=== PATIENT | male | born 1955 | race Caucasian/White ===

== ENCOUNTER 2016-10-27 10:14 | Observation (INO) ==
[2016-10-27] MEDS ORDERED: NS 1,000 ML IV ONE (10:52)
[2016-10-27 11:04] LABS: MANUAL DIFF NEEDED? NO
[2016-10-27 11:08] LABS: BASO% 0.5 % (0.0-0.8); EOS# 0.37 X1000 (0.0-0.7); HEMATOCRIT 41.9 % (42.0-52.0); HEMOGLOBIN 14.7 g/dL (14.0-18.0); IMM GRAN# 0.02 X1000 (0.0-0.04); IMM GRAN% 0.3 % (0.0-0.5); LYMPH# 1.57 X1000 (1.2-3.4); LYMPH% 21.1 % (20.5-51.1); MCH 32.8 PG (27-31); MCHC 35.1 g/dL (33-37); MCV 93.5 FL (81-99); MONO# 0.77 X1000 (0.11-0.59); MONO% 10.4 % (1.7-9.3); MPV 11.5 FL (7.4-10.4); NEUT% 62.7 % (42.2-75.2); PLT 157 X1000 (130-400); RBC 4.48 XMIL (4.7-6.1)
[2016-10-27 11:24] LABS: INR 0.9 (0.86-1.15); PROTIME 12.5 Seconds (12.1-15.5)
[2016-10-27 11:25] LABS: AGAP 14; ALBUMIN 4.5 g/dL (3.5-5.0); ALKALINE PHOSPHATASE 78 U/L (32-122); BUN 12 mg/dL (8-22); CALCIUM 9.1 mg/dL (8.8-10.2); CHLORIDE 106 mmol/L (98-107); CK PROFILE 152 U/L (24-204); COSMO 279; GOT 18 U/L (10-34); GPT 18 U/L (10-44); POTASSIUM 3.8 mmol/L (3.5-5.1); PTT PL 30.1 Seconds (22.6-43.9); SODIUM 140 mmol/L (136-145); TCO2 21 mmol/L (25-35); TOTAL PROTEIN 7.3 g/dL (6.3-8.3)
--- NOTE | 2016-10-27 11:33 | Diag Imaging Result Document ---
PROCEDURE NAME: CHEST-1 VIEW - 10/27/2016 ONE VIEW OF THE CHEST: FINDINGS: There are hypertrophic changes in the 1st rib ends bilaterally. This is notable on the left producing a nodule-like shadow over the apex. The heart size and pulmonary vascularity are within normal limits. There are scattered granulomata. There are no previous studies. IMPRESSION: No evidence of acute disease.
--- NOTE | 2016-10-27 11:34 | Diag Imaging Result Document ---
PROCEDURE NAME: HEAD W/O CONTRAST - 10/27/2016 CT OF THE HEAD WITHOUT CONTRAST: FINDINGS: There are patchy lucencies in the white matter of both hemispheres particularly in the frontal and parietal lobes. There is no evidence of mass effect, bleed, or abnormal extra-axial fluid collection. No previous studies are available for comparison. There is some mucosal thickening in the ethmoid air cells. The calvarium is intact. IMPRESSION: Chronic microvascular changes. No definite evidence of acute disease.
--- NOTE | 2016-10-27 12:00 | PROVIDER DOCUMENTATION ---
This chart was entered by Mary Ellen Robb Scribe, acting as scribe for Elvis Farooq MD. HPI-Neurological Disorder - General Chief Complaint: Facial Pain Stated Complaint: POSS STROKE Time Seen by Provider: 10/27/16 10:32 Source: patient Allergies/Adverse Reactions: Patient Allergies Allergy/AdvReac Type Severity Reaction Status Date / Time No Known Allergies Allergy Verified 10/27/16 10:20 Home Medications: Home Medication List Medication Instructions Recorded Confirmed Last Taken Type NK [No Home Medications] 10/27/16 10/27/16 Unknown History - History of Present Illness-Neuro Nature of Presenting Problem: Pt is 61 y/o M presents to the ED with R side facial numbness. Pt states symptoms started yesterday. Pt denies SOB. Pt denies recent trauma. Headache Location: denies: frontal, temporal, occipital, parietal, global Severity: reports: mild Onset/Duration: reports: 24 hours ago Timing: reports: still present, intermittent Context: reports: facial droop (R), other (R side facial numbness) Character of Altered Mental Status: reports: N/A Any recent trauma/injury?: reports: none Character of Deficits: denies: altered sensation, vision problem/glaucoma, impaired speech, impaired swallowing, decreased ability to stand, decreased ability to walk, falling New weakness or altered sensation location:: reports: right facial Cognitive Baseline: alert, oriented x3 Gait Baseline: walks without assistance Associated Symptoms: reports: denies symptoms Similar Symptoms Previously?: Yes Recently seen or treated by another doctor?: No Review of Systems - Adult - REVIEW OF SYSTEMS - ADULT Constitutional: denies: chills, fever Eyes: denies: blurred vision, double vision Ears, Nose, Mouth & Throat: denies: ear pain, nose pain, throat pain Cardiovascular: denies: chest pain, heart murmur, irregular heart rate Respiratory: denies: cough, shortness of breath, wheezing Gastrointestinal: denies: abdominal pain, diarrhea, nausea, vomiting Genitourinary: denies: dysuria, hematuria Musculoskeletal: denies: bone pain, joint pain, neck pain Integumentary: denies: hives, itching, rash Neurological: reports: other (R side facial droop and numbness). denies: ataxia , dizziness/vertigo, headache/migraines, loss of balance, numbness, paresthesia , seizure, slurred speech, syncope, tremors Psychiatric: reports: no symptoms reported Endocrine: reports: no symptoms reported Hematologic/Lymphatic: reports: no symptoms reported Allergic/Immunologic: reports: no symptoms reported All Other Systems: Reviewed and Negative Past History - Adult - PAST MEDICAL HISTORY-ADULT Review of Records: reports: Nursing Assessment Review, Medications Reviewed, Social history reviewed & non-contributory. Major Childhood Illnesses: reports: denies history Cardiovascular: reports: HTN Respiratory: reports: denies history Gastrointestinal: reports: denies history Obstetrical/Gynecological: reports: denies history Genitourinary: reports: denies history Musculoskeletal: reports: denies history Neurological: reports: denies history Endocrine/Immune: reports: denies history Other Conditions: reports: denies history - IMMUNIZATION STATUS Childhood Immunizations: See Nurse Assessment Flu Vaccine: See Nurse Assessment - FAMILY HISTORY Family History: reviewed, not pertinent - SOCIAL HISTORY Smoking: cigarettes, less than 1 pack/day Provider spent 3-5 mins advising pt. on dangers of tobacco.: Discussed manners to quit use, and f/u contacts for add'l counseling. Alcohol Use Frequency: occasionally Number of drinks per typical drinking period:: 2 drinks Living Situation: family Physical Exam- Neurological - Physical Exam-Neuro Initial Vital Signs Reviewed: Yes General Appearance: appears well, alert, no apparent distress Eye Exam: bilateral eye: normal inspection, PERRL, EOMI HENMT: normocephalic/atraumatic, moist mucous membranes, normal ENT inspection, TMs normal, pharynx normal Head Injury: no evidence of injury Face: 1 - R side facial droop and numbness Neck: non-tender, full range of motion, supple, normal inspection Respiratory: chest non-tender, lungs clear, normal breath sounds, no pleuratic chest pain, no respiratory distress, no accessory muscle use Cardiovascular: normal peripheral pulses, regular rate, rhythm, no edema, no gallop, no JVD, no murmur Abdominal Exam: normal bowel sounds, non tender, soft, no organomegaly, no pulsatile mass Lymphatic: no adenopathy Extremity: normal range of motion, non-tender, normal gait, normal inspection, no pedal edema, no calf tenderness, normal capillary refill operator supply Exam: normal hearing, normal speech, PERRL, facial droop (R), facial weakness (R) Coordination/Gait: normal finger to nose, normal gait Motor/Sensory: no motor deficit, no sensory deficit, no pronator drift Neurologic: grossly normal Integumentary: normal color, normal turgor, warm/dry Psych/Mental Status: normal mood/affect Progress - PLAN OF CARE/RESULTS Progress/Plan/Lab Results: Vital Signs - 8 hr 10/27/16 10:17 Temperature 98 F Pulse Rate 86 Respiratory Rate 18 Blood Pressure 188/109 O2 Sat by Pulse Oximetry 100 Laboratory Results - last 24 hr 10/27/16 10/27/16 10/27/16 10:50 10:50 10:50 WBC RBC Hgb Hct MCV MCH MCHC RDW Std Deviation Plt Count MPV Immature Gran % (Auto) Neut % (Auto) Lymph % (Auto) Travis % (Auto) Eos % (Auto) Baso % (Auto) Immature Gran # (Auto) Neut # (Auto) Lymph # (Auto) Travis # (Auto) Eos # (Auto) Baso # (Auto) PT INR APTT (Factor Assay) Sodium 140 Potassium 3.8 Chloride 106 Carbon Dioxide 21 L Anion Gap 14 BUN 12 Creatinine 0.8 Estimated GFR/1.73 m2 > 60 BUN/Creatinine Ratio 15 Glucose 98 Calculated Osmolality 279 Calcium 9.1 Total Bilirubin 0.50 AST 18 ALT 18 Alkaline Phosphatase 78 Creatine Kinase 152 Troponin T < 0.010 Total Protein 7.3 Albumin 4.5 Globulin 3.0 Albumin/Globulin Ratio 2.0 Plasma Lactate Urine Source Urine Color Urine Clarity Urine pH Ur Specific [place] Urine Protein Urine Ketones Urine Blood Urine Nitrite Urine Bilirubin Urine Urobilinogen Urine Microscopic RBC Urine WBC Urine Microscopic WBC Urine Glucose Urine Opiates Screen Ur Oxycodone Screen Urine Methadone Screen Ur Barbituates Screen Ur Tricyclics Screen Ur Phencyclidine Scrn Ur Amphetamines Screen U Methamphetamines Scrn Urine MDMA Screen U Benzodiazepines Scrn Urine Cocaine Screen U Cannabinoids Screen Plasma/Serum Ethyl Alc 10/27/16 10/27/16 10/27/16 10:50 10:50 11:25 WBC 7.43 RBC 4.48 L Hgb 14.7 Hct 41.9 L MCV 93.5 MCH 32.8 H MCHC 35.1 RDW Std Deviation 12.4 Plt Count 157 MPV 11.5 H Immature Gran % (Auto) 0.3 Neut % (Auto) 62.7 Lymph % (Auto) 21.1 Travis % (Auto) 10.4 H Eos % (Auto) 5.0 Baso % (Auto) 0.5 Immature Gran # (Auto) 0.02 Neut # (Auto) 4.66 Lymph # (Auto) 1.57 Travis # (Auto) 0.77 H Eos # (Auto) 0.37 Baso # (Auto) 0.04 PT 12.5 INR 0.90 APTT (Factor Assay) 30.1 Sodium Potassium Chloride Carbon Dioxide Anion Gap BUN Creatinine Estimated GFR/1.73 m2 BUN/Creatinine Ratio Glucose Calculated Osmolality Calcium Total Bilirubin AST ALT Alkaline Phosphatase Creatine Kinase Troponin T Total Protein Albumin Globulin Albumin/Globulin Ratio Plasma Lactate 0.6 Urine Source Urine Color Urine Clarity Urine pH Ur Specific [place] Urine Protein Urine Ketones Urine Blood Urine Nitrite Urine Bilirubin Urine Urobilinogen Urine Microscopic RBC Urine WBC Urine Microscopic WBC Urine Glucose Urine Opiates Screen Ur Oxycodone Screen Urine Methadone Screen Ur Barbituates Screen Ur Tricyclics Screen Ur Phencyclidine Scrn Ur Amphetamines Screen U Methamphetamines Scrn Urine MDMA Screen U Benzodiazepines Scrn Urine Cocaine Screen U Cannabinoids Screen Plasma/Serum Ethyl Alc 10/27/16 10/27/16 13:35 13:35 WBC RBC Hgb Hct MCV MCH MCHC RDW Std Deviation Plt Count MPV Immature Gran % (Auto) Neut % (Auto) Lymph % (Auto) Travis % (Auto) Eos % (Auto) Baso % (Auto) Immature Gran # (Auto) Neut # (Auto) Lymph # (Auto) Travis # (Auto) Eos # (Auto) Baso # (Auto) PT INR APTT (Factor Assay) Sodium Potassium Chloride Carbon Dioxide Anion Gap BUN Creatinine Estimated GFR/1.73 m2 BUN/Creatinine Ratio Glucose Calculated Osmolality Calcium Total Bilirubin AST ALT Alkaline Phosphatase Creatine Kinase Troponin T Total Protein Albumin Globulin Albumin/Globulin Ratio Plasma Lactate Urine Source CLEAN CATCH Urine Color YELLOW Urine Clarity CLEAR Urine pH 7.0 Ur Specific [place] 1.005 Urine Protein NEGATIVE Urine Ketones NEGATIVE Urine Blood 1+ A Urine Nitrite NEGATIVE Urine Bilirubin NEGATIVE Urine Urobilinogen NORMAL Urine Microscopic RBC <10 Urine WBC TRACE A Urine Microscopic WBC <10 Urine Glucose NEGATIVE Urine Opiates Screen NONE DETECTED Ur Oxycodone Screen NONE DETECTED Urine Methadone Screen NONE DETECTED Ur Barbituates Screen NONE DETECTED Ur Tricyclics Screen NONE DETECTED Ur Phencyclidine Scrn NONE DETECTED Ur Amphetamines Screen NONE DETECTED U Methamphetamines Scrn NONE DETECTED Urine MDMA Screen NONE DETECTED U Benzodiazepines Scrn NONE DETECTED Urine Cocaine Screen NONE DETECTED U Cannabinoids Screen NONE DETECTED Plasma/Serum Ethyl Alc Orders Category Date Time Status Cardiac Monitoring DIRECTED Care 10/27/16 10:51 Active Finger Stick Blood Sugar (ED) DIRECTED Care 10/27/16 10:51 Active Saline Loc NOW Care 10/27/16 10:51 Active CHEST-1 VIEW [RAD] Stat Exams 10/27/16 10:51 Completed HEAD W/O CONTRAST [CT] Stat Exams 10/27/16 10:51 Completed ALCOHOL BLOOD Stat Lab 10/27/16 10:50 Completed CBC WITH ELECTRONIC DIFF [HEME] Stat Lab 10/27/16 10:50 Completed CK PROFILE [SP CHEM] Stat Lab 10/27/16 10:50 Completed COMPREHENSIVE METABOLIC PANEL [CHEM] Stat Lab 10/27/16 10:50 Completed LACTATE, PLASMA [CHEM] Stat Lab 10/27/16 11:25 Completed PROTIME WITH INR PL [COAG] Stat Lab 10/27/16 10:[address] [COAG] Stat Lab 10/27/16 10:50 Completed TROPONIN T Stat Lab 10/27/16 10:[address] W/POSS RFLX CULT [URINALYSIS] Stat Lab 10/27/16 13:35 Completed URINE DRUG SCREEN PL Stat Lab 10/27/16 13:35 Completed 0.9% Sodium Chloride Inj [Ns] 1,000 ml Med 10/27/16 10:52 Active IV 150 mls/hr Metoprolol [Lopressor] Med 10/27/16 12:40 Discontinued 5 mg IV NOW ONE Pulse Oximetry Stat Oth 10/27/16 10:51 Active EKG [EKG] Stat Ther 10/27/16 10:51 Active Result Diagrams: 10/27/16 10:50 10/27/16 10:50 - EKG 1 Time of EKG reading by physician:: 11:49 EKG Read and Signed by:: Elvis Farooq EKG Interpretation (*Must complete 3 of following elements*): Abnormal Rate: 64 Rhythm: normal sinus rhythm Comments: incomplete RBBB; nonspecific T wave abnormality - XRAY 1 XRAY: Bilateral XRAY Study: Chest Impression: Normal XRAY Interpretation: NAD - CT/MRI 1 CT Study: Head Impression: Abnormal CT Results: chronic white matter changes, no bleed or mass - CONSULTS/PCP/HOSPITALIST Notification #1 *Consult/PCP/Hospitalist*: Dr. Bhatt Time Discussed: 14:34 (Dr. Bhatt accepted admit) Reason/Comments: Dr. Farooq consulted with Dr. Bhatt about admit of Pt Consult Disposition: Admit Departure - Departure Time of Disposition Decision: 14:23 DIAGNOSIS: Swain's palsy, Elevated blood pressure reading CVA (cerebral vascular accident) Qualifiers: CVA mechanism: unspecified Qualified Code(s): I63.9 - Cerebral infarction, unspecified Disposition: ADMITTED INPATIENT 09 Certified Medical Emergency: Emergent Condition: Stable Additional Freetext Instructions: ED Follow Up Instructions: You have been treated by a care provider in the Emergency Department. These instructions are being provided to you so you can have an understanding of how to care for yourself upon discharge. Upon discharge from the Emergency Department, you are responsible for making arrangements for follow-up care by a physician of your choice. Take all prescribed medications as directed. Return to the Emergency Department immediately for any new or worsening symptoms. You may call the Physician Referral phone number at [phone] to obtain a list of Physicians who are taking new patients. Referrals and Follow-Ups: None,PCP [Primary Care Provider] - This chart was documented by the indicated elsyibe, (Mary Ellen Robb Scribe) and accurately reflects the services I performed and decisions made by me, Elvis Farooq MD, as attested by the provider's signature.
[2016-10-27] MEDS ORDERED: LOPRESSOR IV ONE (12:40)
[2016-10-27 13:42] LABS: URINE CULTURE PL NEEDED? NO
[2016-10-27 13:50] LABS: UR AMPHETAMINES QUAL NONE DETECTED (NONE DETECT); UR BARBITUATES QUAL NONE DETECTED (NONE DETECT); UR BENZODIAZEPIN QUAL NONE DETECTED (NONE DETECT); UR CANNABINOIDS QUAL NONE DETECTED (NONE DETECT); UR COCAINE QUAL NONE DETECTED (NONE DETECT); UR MDMA QUAL NONE DETECTED (NONE DETECT); UR METHADONE QUAL NONE DETECTED (NONE DETECT); UR METHAMPHETAMINE QUAL NONE DETECTED (NONE DETECT); UR OPIATES QUAL NONE DETECTED (NONE DETECT); UR OXYCODONE QUAL NONE DETECTED (NONE DETECT); UR PCP QUAL NONE DETECTED (NONE DETECT); UR TCA QUAL NONE DETECTED (NONE DETECT)
[2016-10-27 14:07] LABS: BILIRUBIN URINE NEGATIVE (NEGATIVE); BLOOD URINE 1+ (NEGATIVE); CLARITY CLEAR (CLEAR); COLOR YELLOW; GLUCOSE URINE NEGATIVE (NEGATIVE); LEUKOCYTES URINE TRACE (NEGATIVE); NITRITE URINE NEGATIVE (NEGATIVE); PROTEIN URINE NEGATIVE (NEGATIVE); SP GRAVITY URINE 1.005; UROBILINOGEN URINE NORMAL
[2016-10-27 14:15] LABS: URINE RBC <10 /HPF (<10); URINE SOURCE CLEAN CATCH; URINE WBC <10 /HPF (<10)
[2016-10-27] MEDS ORDERED: LACRI-LUBE OPH OINT RIGHT EYE SCH (17:15)
[2016-10-27] MEDS ORDERED: APRESOLINE IV PRN (17:31)
[2016-10-27] MEDS ORDERED: PRINIVIL PO ONE (17:50)
--- NOTE | 2016-10-27 18:16 | HISTORY AND PHYSICAL ---
CHIEF COMPLAINT: Right-sided facial numbness and drooping. HISTORY OF PRESENT ILLNESS: This is a 61-year-old male with a history of tobacco use and hypertension. He came in complaining of a right-sided facial droop with headache and numbness. He states that he was at work during the night Tuesday night. About 2 a.m. he noticed that just the corner of his right side of his mouth felt funny, was going numb. He said about 4 o'clock in the morning the numbness had progress to about the side of his face although there was no drooping and no difficulty moving. He states at that time, his eye was closing well. He works night. He went to bed. Woke up about 3 or 4 p.m. on Tuesday and noticed that the right side of his face was drooping, his eyelid is drooping and he is unable to close his eye completely. He has had a headache off and on. He has been very light sensitive with increased tearing to his right eye. He does have some pain into his right ear although this comes and goes. He has had some blurred vision throughout the last 24 hours. From himself and his family members he has had no change in speech, no difficulty swallowing. He has been able to eat without any difficulty in fact, he is eating a hamburger and [place] fries during the interview and he has no difficulty chewing or swallowing. He does have a history of hypertension. He was on antihypertensives until about 4 or 5 years ago when moved from [place] to [place]. He has just not taken the time to find a medical doctor to get medications. He is unaware of what his normal blood pressure is over these last 5 years. On arrival to the emergency room he was noted to have a blood pressure of 188/109 with a heart rate of 86, respirations 18, temperature 98 degrees. Repeat pressure was 200/133. He was given 1 dose of Lopressor IV and blood pressure did go from 180 down to about 130 systolic but within a few minutes it did creep back up. CT of the head revealed no acute processes. PAST MEDICAL HISTORY: Hypertension, tobacco use. PAST SURGICAL HISTORY: Vasectomy. SOCIAL HISTORY: He does smoke. He denies alcohol or illicit drug use. ALLERGIES: No known drug allergies. HOME MEDICATIONS: None. REVIEW OF SYSTEMS: A 14 point review of systems is discussed with patient. Pertinent positives stated in HPI. He denied dizziness, orthopnea, PND, cough, chest pain, palpitations, syncope, any nausea, vomiting, diarrhea, constipation, black or bloody vomitus, black or bloody stools. PHYSICAL EXAMINATION: GENERAL: This is a 61-year-old male, sitting on the side of the bed, in no distress. Blood pressure is 190/114 with a heart rate of 67, respirations are 18, temperature is 98.3 degrees with room air saturations 100%. HEENT: Head is normocephalic, atraumatic. Pupils are equal, round, and react. Sclerae are anicteric. Mucous membranes are moist. His right eye does not close. NECK: Supple. Trachea midline. CARDIOVASCULAR: Regular rate and rhythm. S1, S2 appreciated. PULMONARY: Breath sounds are clear with no increased work of breathing noted. GASTROINTESTINAL: Abdomen is soft, nontender, nondistended. Bowel sounds in all 4 quadrants. BACK: No CVAT. No spine tenderness. MUSCULOSKELETAL: Good range of motion of joints. NEUROLOGIC: He is alert and oriented x3. Speech is clear. There is no tongue or uvula deviation. Shoulder shrug is equal. [employer] Member are equal. No plantar drift. He has [id number] 5/5 bilateral. Muscle strength is 5/5 x4. He has normal gait. DIAGNOSTICS: WBC is 7.43 with hemoglobin 14.7, hematocrit 41.9 and platelets 157,000. INR is 0.90. Sodium is 140, potassium 3.8, BUN 12, creatinine 0.8, with a glucose of 98. Troponin is negative. Urine drug screen is negative with a blood alcohol of 0. CT of the head revealed no acute processes with chronic microvascular changes. Chest x-ray revealed no evidence of acute disease. ASSESSMENT AND PLAN: 1. Swain's palsy. 2. Hypertension. 3. Tobacco abuse. 4. Noncompliance. He will be admitted to the hospital. He will be placed on telemetry with neuro checks. We will give IV hydration. We will start steroids daily as well as Valtrex. We will protect his right eye using Artificial Tears at least every 2 hours and p.r.n. with Lacri-Lube at night, taping his eyes closed and patching. He was given Lopressor in the emergency room with no real change in blood pressure. We will start hydralazine p.r.n. and once we get the pressure down we can transition to p.o. medications. Further treatments pending hospital course. Dictated by SAMIR Caballero for Vamsi Bhatt MD cc: SAMIR Caballero MD
[2016-10-27] MEDS: VALTREX PO SCH (19:06)
[2016-10-27] MEDS: PREDNISONE PO SCH (19:11)
[2016-10-27] MEDS: TEARISOL OPH SOLUTION RIGHT EYE SCH ×3 (19:18→21:48)
[2016-10-28] MEDS: TEARISOL OPH SOLUTION RIGHT EYE SCH ×5 (00:16→08:42)
[2016-10-28] MEDS: VALTREX PO SCH (04:08)
[2016-10-28 04:52] VITALS: BP 124/79
[2016-10-28 06:21] LABS: HEMATOCRIT 42.2 % (42.0-52.0); HEMOGLOBIN 14.4 g/dL (14.0-18.0); MCH 31.8 PG (27-31); MCHC 34.1 g/dL (33-37); MCV 93.2 FL (81-99); MPV 12.2 FL (7.4-10.4); RBC 4.53 XMIL (4.7-6.1)
[2016-10-28 06:48] LABS: AGAP 12; ALBUMIN 4.2 g/dL (3.5-5.0); ALKALINE PHOSPHATASE 79 U/L (32-122); BUN 15 mg/dL (8-22); CALCIUM 9.5 mg/dL (8.8-10.2); CHLORIDE 107 mmol/L (98-107); COSMO 283; GOT 16 U/L (10-34); GPT 18 U/L (10-44); POTASSIUM 4.3 mmol/L (3.5-5.1); SODIUM 140 mmol/L (136-145); TCO2 21 mmol/L (25-35); TOTAL PROTEIN 6.6 g/dL (6.3-8.3)
[2016-10-28] MEDS ORDERED: DIPHTHERIA/TETANUS ADULT IM ONE (07:47)
[2016-10-28] MEDS ORDERED: PNEUMOVAX 23 IM ONE (08:00)
[2016-10-28] MEDS ORDERED: BOOSTRIX VACCINE IM ONE (08:30)
[2016-10-28] MEDS: PREDNISONE PO SCH (08:45)
[2016-10-28] MEDS ORDERED: PRINIVIL PO SCH ×2 (09:00)
--- NOTE | 2016-10-28 09:00 | DISCHARGE SUMMARY ---
ADMISSION DATE: 10/27/2016 DISCHARGE DATE: 10/28/2016 DISCHARGE DIAGNOSES: 1. Swain's palsy, unchanged, right-sided facial drooping. 2. Hypertension, improved tremendously. Blood pressures were 200/133 on admit, currently 124/79. 3. Chronic tobacco abuse. CONSULTATIONS: None. PROCEDURES: None. BRIEF HOSPITAL COURSE: The patient is a 61-year-old male who was admitted as noted in the HPI, treated in the usual fashion. He will be discharged home today with a prescription of lisinopril for his blood pressure, 10 mg. This will be increased over the next couple of weeks if he needs to. Will also use Valtrex and Medrol Dosepak for his Swain's palsy. FOLLOWUP: The patient will follow up in the office in 2 months if he desires, or to primary care of his choice. TIME SPENT: 35 minutes were spent in discharge planning and instructions, answering questions. cc: Vamsi Bhatt MD
== END 2016-10-28 09:10 | disposition home or self-care (01) ==
LOC: P.ED 10:14 → INTOOBSV 16:08 → P.MEDSURG 16:08
PROVIDERS: ATTEND Family Medicine